=== PATIENT | female | born 1970 | race Caucasian/White ===

== ENCOUNTER 2019-08-05 02:22 | Emergency (ER) | payer OTHER ==
[2019-08-05 02:35] VITALS: BP 127/87; TEMP 96.2; O2SAT 99
--- NOTE | 2019-08-05 02:43 | ED.PDOC ---
History of Present Illness - General Chief Complaint: ENT Problem Stated Complaint: hearing aid stuck in ear Time Seen by Provider: 08/05/19 02:40 Source: patient Exam Limitations: no limitations - History of Present Illness Initial Comments: the patient is a 48-year-old female presenting to the emergency room secondary to getting the tip of one of her hearing aid stuck in the ear canal of her left ear this evening. She has been unable to retrieve it. No trauma. Timing/Duration: 1-3 hours Severity: mild Improving Factors: nothing Worsening Factors: nothing Associated Symptoms: denies symptoms Review of Systems - Review of Systems Constitutional: States: no symptoms reported EENTM: States: see HPI Respiratory: States: no symptoms reported Cardiology: States: no symptoms reported Gastrointestinal/Abdominal: States: no symptoms reported Genitourinary: States: no symptoms reported Musculoskeletal: States: no symptoms reported Skin: States: no symptoms reported Neurological: States: no symptoms reported Endocrine: States: no symptoms reported All other Systems: No Change from Baseline Physical Exam - Physical Exam General Appearance: Alert, Comfortable, No apparent distress Eye Exam: bilateral normal Ears, Nose, Throat: other - tip of hearing aid is in the left ear canal Respiratory: no respiratory distress, no accessory muscle use Cardiovascular/Chest: normal peripheral pulses Peripheral Pulses: radial,right: 2+, radial,left: 2+ Rectal Exam: deferred Extremity: no pedal edema, normal capillary refill Neurologic: alert, normal mood/affect, oriented x 3 Skin Exam: normal color Comments: Vital Signs - 24 hr 08/05/19 02:22 Temperature 96.2 F L Pulse Rate [ 82 Right Apical] Respiratory 14 Rate Blood Pressure 127/87 [Right Arm] O2 Sat by Pulse 99 Oximetry Progress - Progress Progress: 08/05/19 02:42 the patient is a 48-year-old female presenting to the emergency room secondary to getting the tip of her hearing aid stuck in her left ear canal. Forceps were used to remove it without difficulty. Patient tolerated the procedure well. Departure - Departure Clinical Impression: Foreign body in ear Qualifiers: Encounter type: initial encounter Laterality: left Qualified Code(s): T16.2XXA - Foreign body in left ear, initial encounter Disposition: Discharge to Home or Self Care Condition: Good Departure Forms: ED Discharge - Pt. Copy, Patient Portal Self Enrollment Diet: regular diet Activity: increase activity as tolerated Additional Instructions: the patient is a 48-year-old female presenting to the emergency room secondary to getting the tip of her hearing aid stuck in her left ear canal. Forceps were used to remove it without difficulty. Patient tolerated the procedure well.
== END 2019-08-05 02:48 | disposition home or self-care (01) ==
LOC: ER 02:22
DX: T16.2XXA Foreign body in left ear, initial encounter (principal); Y92.9 Unspecified place or not applicable